=== PATIENT | female | born 1935 | race Hispanic/Latino ===

== ENCOUNTER 2018-12-28 22:50 | Observation (INO) | payer OTHER ==
[~2018-12-28] VITALS: Ht 157.5 cm; Wt 53.9 kg
[~2018-12-28 22:50] MED LIST: CLOP75TA32 PO; COLC0.6C3 PO; HYDR25TA PO; LOSA50TA64 PO
[2018-12-28 23:38] LABS: BASOPHILS % (AUTO) 0.5 % (0.0-5.0); EOSINOPHILS % (AUTO) 1.4 % (0.0-8.0); HEMATOCRIT 36.2 % (36-48); LYMPHOCYTES % (AUTO) 20.6 % (21.0-51.0); MEAN CORPUSCULAR HEMOGLOBIN 28.5 pg (27.0-33.0); MEAN CORPUSCULAR HGB CONC 34.2 g/dL (32.0-36.0); MEAN CORPUSCULAR VOLUME 83.4 fL (79-99); NEUTROPHILS % (AUTO) 58.5 % (40.0-77.0); NUCLEATED RED BLOOD CELLS 0.1 % (0.0-0.19); PLATELET COUNT (AUTO) 125 K/uL (130-400); RED BLOOD CELL COUNT(AUTO) 4.33 MIL/uL (4.00-5.50); RED CELL DISTRIBUTION WIDTH 12.8 % (11.0-15.5); WHITE BLOOD COUNT (AUTO) 9.9 K/uL (4.8-10.8)
[2018-12-28 23:46] LABS: CREATININE 1.4 mg/dL (0.5-1.5); POTASSIUM 3.7 mmol/L (3.5-5.1)
[2018-12-29] MEDS ORDERED: ASPIRIN 81MG TAB.CHEW ONE (00:32)
[2018-12-29] MEDS ORDERED: SODIUM CHLORIDE 0.9% 1000ML 1,000 ML IV ONE (00:33)
[2018-12-29] MEDS ORDERED: ONDANSETRON HCL 4 MG/2 ML VIAL IVP PRN (01:30)
[2018-12-29] MEDS ORDERED: ACETAMINOPHEN 325 MG TAB PO PRN (01:30)
[2018-12-29] MEDS ORDERED: ASPIRIN 81MG TAB.CHEW PO SCH (01:30)
[2018-12-29 04:13] LABS: BASOPHILS % (AUTO) 0.7 % (0.0-5.0); EOSINOPHILS % (AUTO) 1.7 % (0.0-8.0); HEMATOCRIT 36.1 % (36-48); LYMPHOCYTES % (AUTO) 25.3 % (21.0-51.0); MEAN CORPUSCULAR HEMOGLOBIN 28.1 pg (27.0-33.0); MEAN CORPUSCULAR HGB CONC 33.6 g/dL (32.0-36.0); MEAN CORPUSCULAR VOLUME 83.7 fL (79-99); MONOCYTES % (AUTO) 14.8 % (3.0-13.0); NEUTROPHILS % (AUTO) 57.5 % (40.0-77.0); PLATELET COUNT (AUTO) 129 K/uL (130-400); RED BLOOD CELL COUNT(AUTO) 4.31 MIL/uL (4.00-5.50); RED CELL DISTRIBUTION WIDTH 12.5 % (11.0-15.5); WHITE BLOOD COUNT (AUTO) 8.5 K/uL (4.8-10.8)
[2018-12-29 04:20] LABS: CREATININE 1.1 mg/dL (0.5-1.5); POTASSIUM 3.8 mmol/L (3.5-5.1)
[2018-12-29 04:26] LABS: ALBUMIN 3.2 g/dL (3.5-5.0); BILIRUBIN,TOTAL 0.4 mg/dL (0.2-1.0); MAGNESIUM 1.7 mg/dL (1.80-2.40); PHOSPHORUS 3.9 mg/dL (2.5-4.9); TOTAL PROTEIN, SERUM 6.9 g/dL (6.0-8.3)
[2018-12-29] MEDS ORDERED: IOHEXOL-350 75 ML VIAL IV ONE (07:19)
[2018-12-29] MEDS ORDERED: FAMOTIDINE/PF 20 MG/2 ML VIAL IV ONE (07:46)
[2018-12-29] MEDS: FAMOTIDINE/PF 20 MG/2 ML VIAL IV SCH ×2 (09:00→20:47)
[2018-12-29] MEDS: ASPIRIN 81MG TAB.CHEW PO SCH (09:00)
[2018-12-29 09:55] VITALS: BP 141/67
[2018-12-29 10:08] LABS: CHOLESTEROL 130 mg/dL (<200); HDL CHOLESTEROL 49 mg/dL (35-85); LDL DIRECT 74 mg/dL (0-99); TRIGLYCERIDES 47 mg/dL (30-200)
[2018-12-29] MEDS: SODIUM CHLORIDE 0.9% 1000ML 1,000 ML IV SCH ×3 (10:15→21:30)
[2018-12-29 10:27] LABS: APPEARANCE,URINE CLEAR (CLEAR); BILIRUBIN,URINE NEGATIVE (NEGATIVE); COLOR,URINE YELLOW (YELLOW); GLUCOSE, URINE (UA) NEGATIVE (NEGATIVE); KETONES,URINE NEGATIVE (NEGATIVE); LEUKOCYTE ESTERASE ,URINE NEGATIVE (NEGATIVE); NITRATE,URINE NEGATIVE (NEGATIVE); OCCULT BLOOD,URINE TRACE-INTACT (NEGATIVE); PROTEIN,URINE NEGATIVE (NEGATIVE); UROBILINOGEN,URINE 0.2 mg/dL (0.2-1.0)
--- NOTE | 2018-12-29 10:30 | NUR ---
ARRIVED TO THE ROOM ALERT AND AWAKE, ORIENTED TO PERSON, PLACE AND TIME. DENIES PAIN ON ARRIVAL. ASSISTED TO THE BATHROOM WITH MINIMAL ASSIST.ROOM ORIENTATION AND STAFF ORIENTATION WAS DONE. FAMILY TO BRING HOME MEDICATION. CALL LIGHT PLACED WITHIN REACH.
[2018-12-29 11:16] LABS: BACTERIA,URINE Rare /HPF (None Seen); RBC,URINE 0-1 /HPF (0-1); SQUAMOUS EPITHELIAL CELL,UR Rare /HPF (0-2); WBC,URINE 0-1 /HPF (0-1)
[2018-12-29 12:00] VITALS: BP 138/58
--- NOTE | 2018-12-29 13:28 | NUR ---
COGNITIVE-LINGUISTIC EVAL COMPLETED. Pt CURRENTLY AT BASELINE. Addendum: 12/29/18 at 1330 by LILY LAMBERT, SPT ST Amended: Links added.
--- NOTE | 2018-12-29 13:33 | NUR ---
DYSPHAGIA EVAL COMPLETED. -S/S OF ASPIRATION. RECOMMEND REGULAR TEXTURE, THIN LIQUIDS; PILLS WHOLE WITH LIQUIDS. Addendum: 12/29/18 at 1335 by LILY LAMBERT, [facility] ST Amended: Links added.
[2018-12-29] MEDS: CLOPIDOGREL BISULFATE 75 MG TAB PO SCH (14:37)
[2018-12-29 16:00] VITALS: BP 124/55
[2018-12-29 19:56] VITALS: BP 137/79
[2018-12-29] MEDS: ATORVASTATIN CALCIUM 40 MG TABLET PO SCH (20:46)
--- NOTE | 2018-12-29 23:00 | NUR ---
ASSESSED FAMILY MEMBER REPORTED PATIENT HAD AN EPISODE OF FORGETFULNESS AND WAS "HALLUCINATING". STATED PATIENT THOUGHT THE FLOOR WAS THE WALL. PATIENT WAS ASSESSED AND WAS ORIENTED TO PERSON, PLACE, TIME, AND SITUATION. WILL CONTINUE TO MONITOR.
[2018-12-29 23:35] VITALS: BP 122/79
[2018-12-30 03:36] VITALS: BP 133/63
[2018-12-30 05:03] LABS: HEMATOCRIT 32.5 % (36-48); MEAN CORPUSCULAR HEMOGLOBIN 28.6 pg (27.0-33.0); MEAN CORPUSCULAR HGB CONC 33.9 g/dL (32.0-36.0); MEAN CORPUSCULAR VOLUME 84.4 fL (79-99); PLATELET COUNT (AUTO) 115 K/uL (130-400); RED BLOOD CELL COUNT(AUTO) 3.85 MIL/uL (4.00-5.50); RED CELL DISTRIBUTION WIDTH 12.5 % (11.0-15.5); WHITE BLOOD COUNT (AUTO) 8.4 K/uL (4.8-10.8)
[2018-12-30 05:33] LABS: POTASSIUM 3.9 mmol/L (3.5-5.1)
[2018-12-30] MEDS: SODIUM CHLORIDE 0.9% 1000ML 1,000 ML IV SCH ×3 (07:30→21:03)
[2018-12-30 08:00] VITALS: BP 129/66
[2018-12-30] MEDS: ASPIRIN 81MG TAB.CHEW PO SCH (08:06)
[2018-12-30] MEDS: CLOPIDOGREL BISULFATE 75 MG TAB PO SCH (08:06)
[2018-12-30] MEDS: FAMOTIDINE/PF 20 MG/2 ML VIAL IV SCH ×2 (08:06→21:02)
[2018-12-30 12:00] VITALS: BP 139/69
--- NOTE | 2018-12-30 12:08 | NUR ---
BP 174/110 REPORTED BLOOD PRESSURE TO Monika SUERO, ORDER FOR NORVASC 10MG PO ONCE GIVEN. NO OTHER ORDERS AT THIS TIME. Addendum: 12/30/18 at 1239 by EVA GILBERT RN RN PREVIOUS NOTE ENTERED ON WRONG PATIENT
--- NOTE | 2018-12-30 12:09 | NUR ---
DCP CM met with pt and family discussed dc plans. Pt is semi-independent, assist with bathing and dressing prior to admission, lives at home with spouse, daughter and son. Pt has a rollator walker, isela, provider 3hrs/wk. Denies any other equipments/services. Pt feels safe to go back home, family able to assist with transportation and needs as necessary. DC plan to home once stable. CM to cont to follow up. Addendum: 12/30/18 at 1211 by ZHAO CAMACHO LVN CM Amended: Links added.
[2018-12-30] MEDS ORDERED: ASPI-1005 PO (12:39)
[2018-12-30 16:00] VITALS: BP 135/72
[2018-12-30 20:00] VITALS: BP 143/74
[2018-12-30] MEDS: ATORVASTATIN CALCIUM 40 MG TABLET PO SCH (21:03)
[2018-12-31] VITALS: BP 159/69
[2018-12-31 04:00] VITALS: BP 144/67
[2018-12-31] MEDS: SODIUM CHLORIDE 0.9% 1000ML 1,000 ML IV SCH (06:02)
[2018-12-31 07:30] VITALS: BP 167/67
[2018-12-31] MEDS: ASPIRIN 81MG TAB.CHEW PO SCH (08:20)
[2018-12-31] MEDS: CLOPIDOGREL BISULFATE 75 MG TAB PO SCH (08:21)
[2018-12-31] MEDS: FAMOTIDINE/PF 20 MG/2 ML VIAL IV SCH (08:21)
[2018-12-31] MEDS ORDERED: FLU VACC QS2019-20 36MOS UP/PF 60 MCG/0.5 ML ML IM SCH (09:00)
--- NOTE | 2018-12-31 11:05 | NUR ---
PT REQUESTS FLU SHOT. DENIES ALLERGY TO EGGS OR COMPONENT OF VACCINE. DENIES HX OF GUILLAIN-BARRE SYND. DENIES HX BONE MARROW TRANSPLANT. DENIES LATEX ALLERGY. FLU SHOT ORDERED.
[2018-12-31] MEDS ORDERED: FLU VACC QS2019-20 36MOS UP/PF 60 MCG/0.5 ML ML IM ONE (11:15)
[2018-12-31] MEDS ORDERED: PRAV10TA39 PO (13:47)
[2018-12-31] MEDS ORDERED: APIX2.5T PO (13:47)
--- NOTE | 2018-12-31 15:22 | NUR ---
DISCHARGE DISCHARGE INSTRUCTIONS GIVEN TO PATIENT, FAMILY PRESENT IN ROOM. BOTH PATIENT AND FAMILY VERBALIZED UNDERSTANDING. IV REMOVED NO SIGNS OF BLEEDING COVERED WITH BANDAID. PATIENT INSTRUCTED TO FOLLOW UP WITH [facility] FOR 2 WEEK MOBILE TELEMETRY MONITORING. PATIENT GIVEN PRESCRIPTION FOR ELEQUIS AND PRAVASTATIN.
== END 2018-12-31 15:45 | disposition home or self-care (01) ==
LOC: EDH 22:50 → EDHIP 12-29 00:10 → 3AH 12-29 09:50
PROVIDERS: ADMIT Internal Medicine Critical Care Medicine; ATTEND Internal Medicine Critical Care Medicine
DX: R20.0 Anesthesia of skin (principal); E11.9 Type 2 diabetes mellitus without complications; I11.9 Hypertensive heart disease without heart failure; Q21.1 Atrial septal defect; Z86.73 Personal history of transient ischemic attack (TIA), and cerebral infarction without residual deficits; Z79.01 Long term (current) use of anticoagulants; Z79.02 Long term (current) use of antithrombotics/antiplatelets; Z79.82 Long term (current) use of aspirin; Z79.899 Other long term (current) drug therapy; Z90.5 Acquired absence of kidney; Z91.19 Patient's noncompliance with other medical treatment and regimen; Z23 Encounter for immunization
CPT/HCPCS: 36415 ×3; 70450; 70496; 70498; 70551; 80048 ×2; 80053; 80061 ×2; 81001; 82948 ×10; 83735; 84100; 85025 ×2; 85027; 92522; 92610; 93005; 93306; 96374; 96376 ×2; 97116; 97161; 99291; G0008; G0378 ×63; G8978; G8979; G8980; G8981; G8982; G8983; J3490 ×5; J7030 ×5; Q9967

== ENCOUNTER 2021-01-15 19:29 | Emergency (ER) | payer OTHER ==
[~2021-01-15] VITALS: Ht 144.8 cm; Wt 49.9 kg
[~2021-01-15 19:29] MED LIST changes: +APIX2.5T PO; +ASPI-1005 PO; -CLOP75TA32 PO; +PRAV10TA39 PO
[2021-01-15] MEDS ORDERED: FAMO-136 PO (22:21)
[2021-01-15 22:29] VITALS: BP 151/79
[2021-01-15] MEDS ORDERED: MAG/ALUM/SIMETH 30 ML UDCUP PO ONE (22:30)
== END 2021-01-15 22:40 | disposition home or self-care (01) ==
LOC: EDH 19:29
DX: S10.11XA Abrasion of throat, initial encounter (principal); K29.70 Gastritis, unspecified, without bleeding; I11.9 Hypertensive heart disease without heart failure; Z86.73 Personal history of transient ischemic attack (TIA), and cerebral infarction without residual deficits; Z79.899 Other long term (current) drug therapy; X58.XXXA Exposure to other specified factors, initial encounter; Y93.89 Activity, other specified; Y92.89 Other specified places as the place of occurrence of the external cause; Y99.8 Other external cause status
CPT/HCPCS: 70490; 71045

== ENCOUNTER 2022-04-03 09:12 | Emergency (ER) | payer OTHER ==
[~2022-04-03] VITALS: Ht 149.9 cm; Wt 52.6 kg
[~2022-04-03 09:12] MED LIST changes: +ACET-66 PO; +DICL20GE TP; +FAMO-136 PO
[2022-04-03 09:42] LABS: BASOPHILS % (AUTO) 0.5 % (0.0-5.0); EOSINOPHILS % (AUTO) 0.8 % (0.0-8.0); HEMATOCRIT 35.6 % (36-48); LYMPHOCYTES % (AUTO) 14.1 % (21.0-51.0); MEAN CORPUSCULAR HEMOGLOBIN 27.8 pg (27.0-33.0); MEAN CORPUSCULAR HGB CONC 33.1 g/dL (32.0-36.0); MEAN CORPUSCULAR VOLUME 83.8 fL (79-99); MONOCYTES % (AUTO) 15.7 % (3.0-13.0); NEUTROPHILS % (AUTO) 68.1 % (40.0-77.0); PLATELET COUNT (AUTO) 143 K/uL (130-400); RED BLOOD CELL COUNT(AUTO) 4.25 MIL/uL (4.00-5.50); RED CELL DISTRIBUTION WIDTH 11.9 % (11.0-15.5); WHITE BLOOD COUNT (AUTO) 9.8 K/uL (4.8-10.8)
[2022-04-03 09:51] LABS: CREATININE 1.3 mg/dL (0.5-1.5); POTASSIUM 3.8 mmol/L (3.5-5.1)
[2022-04-03 09:56] LABS: ALBUMIN 3.3 g/dL (3.5-5.0); TOTAL PROTEIN, SERUM 7.3 g/dL (6.0-8.3)
[2022-04-03 11:06] VITALS: BP 152/69
== END 2022-04-03 11:17 | disposition home or self-care (01) ==
LOC: EDH 09:12
DX: S00.83XA Contusion of other part of head, initial encounter (principal); S40.022A Contusion of left upper arm, initial encounter; I10 Essential (primary) hypertension; I50.9 Heart failure, unspecified; W18.39XA Other fall on same level, initial encounter; Y93.01 Activity, walking, marching and hiking; Y92.89 Other specified places as the place of occurrence of the external cause; Y99.8 Other external cause status
CPT/HCPCS: 36415; 70450; 70486; 72125; 80053; 85025

== ENCOUNTER 2024-02-15 13:49 | Emergency (ER) | payer OTHER, MEDICARE ==
[~2024-02-15] VITALS: Ht 142.2 cm; Wt 52.2 kg
[2024-02-15 14:25] VITALS: TEMP 98.9
[2024-02-15 15:00] VITALS: BP 122/65; PULSE 84; RESP 18; O2SAT 100
--- NOTE | 2024-02-15 18:00 | HMCIMG ---
CT NECK SOFT TISS W/O CONTRAST HISTORY: Foreign body COMPARISON: 04/03/2022 TECHNIQUE: Multiple sequential axial images of the soft tissue neck were obtained. Patient was not given contrast through intravenous route. FINDINGS: No evidence of radiopaque foreign body is seen. Visualized portion of brain parenchyma within the posterior fossa is within normal limits. Parapharyngeal fat planes are preserved bilaterally. Parotid glands and submandibular glands are grossly within normal limits. There are normal size cervical lymph nodes. The airway is patent. Visualized portion of the lung apices are unremarkable. There are degenerative changes with cervical spine spondylosis. Central canal narrowing is seen. IMPRESSION: 1. No acute findings. CT was performed with one or more following dose reduction techniques: automated exposure control, adjustment of the mA and kv according to patient's size, or use of a iterative reconstruction technique.
--- NOTE | 2024-02-15 18:17 | ERN ---
ED Note History of Present Illness Stated Complaint: FEELS SOMETHING IN THROAT Chief Complaint: Other Problems Time Seen by MD: 16:46 Time Seen by Midlevel: 16:46 Dictation: The patient is an 88-year-old female with a history of hypertension, nephrecto my, thyroidectomy who presents to the emergency department with complaints of sensation of food stuck in throat onset 130 after eating beef tacos. Patient denies any nausea or vomiting, cough, chest pain or shortness of breath. Allergies: Coded Allergies: No Known Drug Allergies (Unverified Allergy, Unknown, 12/28/15) Home Meds Active Scripts Acetaminophen (Tylenol) 500 Mg Tab, 500 MG PO Q4PRN PRN for PAIN LEVEL 4 TO 6, #30 TAB Prov:EDILBERTO INGRAMP 05/23/21 Diclofenac Sodium (Voltaren Arthritis Pain) 20 Gm Gel..gram., 20 GM TP TID, #1 TUBE Prov:EDILBERTO INGRAMP 05/23/21 Famotidine (Pepcid) 20 Mg Tablet, 20 MG PO BID, #60 TAB Prov:KIRAN GRIMM MD 01/15/21 Pravastatin Sodium (Pravastatin Sodium) 10 Mg Tablet, 10 MG PO HS for 30 Days, #30 TAB 1 Refill Prov:JAYDEN BERG MD 12/31/18 Apixaban (Eliquis) 2.5 Mg Tablet, 2.5 MG PO BID for 30 Days, #60 TAB 1 Refill Prov:JAYDEN BERG MD 12/31/18 Aspirin (ASPIRIN 81MG CHEW TAB) 81 Mg Tab.chew, 81 MG PO DAILY for 30 Days, #30 TAB.CHEW Prov:ARTEM NO [facility] 12/30/18 Colchicine (Colchicine) 0.6 Mg Capsule, 0.6 MG PO AD for PAIN LEVEL 6 TO 10, #3 CAP Prov:CHEL SANDERS MD 12/31/15 Reported Medications Losartan Potassium (Losartan Potassium) 50 Mg Tablet, 50 MG PO DAILY, TAB 12/28/15 Hydrochlorothiazide (Hydrochlorothiazide) 25 Mg Tablet, 25 MG PO DAILY, TAB 12/28/15 Past Medical History Past Medical History: CVA, Hypertension Additional Past Medical Hx: 1 KIDNEY Surgical History: Other Surgical History Other: NEPHRECTOMY, THYROIDECTOMY Family History: Negative Social History: Negative RN Note Reviewed/Agreed w/PFSH: Yes Review of System Dictation Constitutional: Negative for fever,chills, and weight loss Eyes: Negative for injury, pain,redness, and discharge ENT: Negative for injury,pain or swelling positive for throat pain Cardiovascular: Negative for chest pain, palpitations, and edema Respiratory: Negative for shortness of breath, cough, and wheezing, Abdomen/GI: Negative for abdominal pain, nausea, vomiting, diarrhea, and constipation Back: Negative for injury and pain : Negative for injury, bleeding and discharge MS/Extremity: Negative for injury and deformity Skin: Negative for rash, and discoloration Neuro: Negative for headache, weakness, numbness, tingling, and seizure Psych: Negative for suicide ideation, homicidal ideation, and hallucinations l Initial Vital Sign VS Vital Signs Date Time Temp Pulse Resp B/P (MAP) Pulse Ox O2 Delivery O2 Flow Rate FiO2 02/15/24 14:25 99.0 78 16 186/79 99 Room Air 0 02/15/24 15:00 21 Physical Exam Dictation Vital Signs reviewed General Appearance: Alert, oriented x 3, no acute distress, well developed, nourished. Head and Face: non-traumatic. Eyes: PERRL, pink conjunctivas, eyelid no trauma, anterior chamber with arcus senilis. Ears: Pinnas intact and no signs of trauma or erythema ear canals clear and no discharge TM no erythema Nose: No discharge, no bleeding. Oropharynx: Mouth normal, tongue pink. pharynx clear,no erythema, tonsils no exudates, no abscesses noted, mucous membrane moist Neck: Supple, non-tender, no thyromegaly, no masses, no JVD, no bruits Breast:Deferred Chest:No tenderness, no crepitus, no paradoxical movement, no retractions Lungs:Clear, well-ventilated, symmetric, no rales, no wheezing, no rhonchi, no stridor, good breath sounds bilaterally Heart: Regular rate, regular rhythm, no murmur, no gallops Vascular: no peripheral edema, Abdomen: Soft, positive bowel sounds, nondistended, no guarding, nontender, no rebound, no masses no hepatomegaly, no splenomegaly, no Arvizu's sign, no hernias. Rectal: Deferred Genital: Deferred Neurological: Normal speech, motor function intact, sensory function intact Musculoskeletal: Neck nontender, full range of motion, back nontender, full range of motion, Extremities: nontender, full range of motion Skin: Color pink, dry, no turgor, no rash, no lacerations, no abrasions, no contusions. Lymphatic: Deferred Results (Laboratory/Radiology) Laboratory/Radiology REASON: r/o foreing body throat ORDERING PHYSICIAN: NO JUAN OCC THERAPY ASST PROCEDURE: NKSOFTI WO - CT NECK SOFT TISS W/O CONTRAST CT NECK SOFT TISS W/O CONTRAST HISTORY: Foreign body COMPARISON: 04/03/2022 TECHNIQUE: Multiple sequential axial images of the soft tissue neck were obtained. Patient was not given contrast through intravenous route. FINDINGS: No evidence of radiopaque foreign body is seen. Visualized portion of brain parenchyma within the posterior fossa is within normal limits. Parapharyngeal fat planes are preserved bilaterally. Parotid glands and submandibular glands are grossly within normal limits. There are normal size cervical lymph nodes. The airway is patent. Visualized portion of the lung apices are unremarkable. There are degenerative changes with cervical spine spondylosis. Central canal narrowing is seen. IMPRESSION: 1. No acute findings. CT was performed with one or more following dose reduction techniques: automated exposure control, adjustment of the mA and kv according to patient's size, or use of a iterative reconstruction technique. Labs Reviewed?: Yes ED Course ED Course Orders Procedure Category Date Status Time Ct Neck Soft Tiss W/O CT 02/15/24 Resulted Contrast 17:13 Vital Signs Date Time Temp Pulse Resp B/P (MAP) Pulse Ox O2 Delivery O2 Flow Rate FiO2 02/15/24 15:00 84 18 122/65 100 Room Air* 0 21 02/15/24 14:25 99.0 78 16 186/79 99 Room Air 0 Medical Decision Making MDM The patient is an 88-year-old female with a history of hypertension, neph rectomy, thyroidectomy who presents to the emergency department with complaints of sensation of food stuck in throat onset 130 after eating beef tacos. Patient denies any nausea or vomiting, cough, chest pain or shortness of breath. CT showed no foreign body in throat. Patient continues in no distress, not coughing, no shortness of breath. Will be discharged to follow up with PCP. Differential diagnosis: Pharyngitis, aspiration, foreign body in throat Need for hospitalization: Patient does not meet criteria for hospitalization. There are no social concerns with this patient. DX & DISP Disposition: Discharge Departure Impression: Primary Impression: Throat irritation Condition: Stable Additional Instructions: Please follow up with primary doctor in 1-2 days. If symptoms continue you might need to referral to a GI specialist. Please return to ER if symptoms worsen FOLLOW-UP WITH PRIMARY CARE PROVIDER IN 1 TO 2 DAYS. TAKE MEDICATIONS DIRECTED HERE IN THE EMERGENCY ROOM. OKAY TO CONTINUE HOME MEDICATIONS UNLESS OTHERWISE DISCUSSED DURING YOUR VISIT IN THE EMERGENCY ROOM TODAY. RETURN TO YOUR NEAREST EMERGENCY ROOM IF SYMPTOMS WORSEN OR IF THERE IS NO IMPROVEMENT. CALL 911 IF YOU NEED IMMEDIATE ASSISTANCE. TAKE TYLENOL OR MOTRIN OVER-THE-C OUNTER NEEDED AND IF NO CONTRAINDICATIONS ARE PRESENT. INCREASE ORAL HYDRATION. A WOUND CULTURE OR URINE CULTURE WAS ORDERED HERE IN THE EMERGENCY ROOM DEPARTMENT PLEASE FOLLOW-UP WITH PRIMARY CARE PROVIDER AND ADVISE THEM TO GET REPEAT PORTS FROM OUR FACILITY. IF YOU HAD ANY CHADD WRAP/SPLINTS THAT WERE APPLIED HERE, PLEASE DO NOT REMOVE THEM UNTIL YOU SEE YOUR PRIMARY CARE OR SPECIALTY. Referrals: MYCHAL BAKER MD (PCP) Time of Disposition: 18:15 I have reviewed the case, and I agree with, Diagnosis and Plan NO JUAN Feb 15, 2024 18:17 GAURI MARTÍNEZ DO Feb 17, 2024 10:43
== END 2024-02-15 19:11 | disposition home or self-care (01) ==
LOC: EDH 13:49
DX: R07.0 Pain in throat (principal); I10 Essential (primary) hypertension; Z79.01 Long term (current) use of anticoagulants; Z79.82 Long term (current) use of aspirin; Z79.899 Other long term (current) drug therapy; Z86.73 Personal history of transient ischemic attack (TIA), and cerebral infarction without residual deficits; Z90.5 Acquired absence of kidney
CPT/HCPCS: 70490; 99284

== ENCOUNTER 2024-06-10 08:32 | Emergency (ER) | payer OTHER, MEDICARE ==
[~2024-06-10] VITALS: Ht 147.3 cm; Wt 47.6 kg
[2024-06-10 08:33] VITALS: BP 191/81; PULSE 75; RESP 16; TEMP 98
--- NOTE | 2024-06-10 08:40 | NUR ---
REFER TO TRAUMA FLOW SHEET
--- NOTE | 2024-06-10 09:07 | HMCIMG ---
FOREARM 2VWS RT HISTORY: Status post fall COMPARISON: None TECHNIQUE: 2 images of right forearm were obtained. FINDINGS: Orthopedic fixation plates and screws are seen traversing the distal radius. Bony osteopenia is seen. There is no acute displaced fracture or dislocation. Degenerative changes are seen. IMPRESSION: 1. Findings as described above.
--- NOTE | 2024-06-10 09:14 | HMCIMG ---
ANKLE 2VWS RT HISTORY: Status post fall COMPARISON: None TECHNIQUE: 2 images of right ankle were obtained. FINDINGS: There is a calcaneal spur. Bony osteopenia is seen. There is no acute displaced fracture or dislocation. Degenerative changes are seen. IMPRESSION: 1. Findings as described above.
--- NOTE | 2024-06-10 09:14 | HMCIMG ---
CT HEAD/BRAIN W/O CONTRAST HISTORY: Trauma COMPARISON: None TECHNIQUE: Multiple sequential axial images of the head were obtained from the base of the skull through vertex. Patient was not given contrast through intravenous route. FINDINGS: The ventricles and extraventricular CSF spaces are dilated consistent with cerebral atrophy. Nonspecific white matter changes seen. Old left occipital lobe infarct is seen. There is no midline shift, mass effect or herniation. No acute intracranial bleed is seen. Visualized portion of the paranasal sinuses are grossly within normal limits. IMPRESSION: 1. No acute intracranial bleed is seen. 2. Atrophy with white matter changes. CT was performed with one or more following dose reduction techniques: automated exposure control, adjustment of the mA and kv according to patient's size, or use of a iterative reconstruction technique.
--- NOTE | 2024-06-10 09:15 | HMCIMG ---
CHEST 1VW HISTORY: Status post fall COMPARISON: 01/15/2021 FINDINGS: A frontal projection of the chest was obtained. Prominent interstitial markings are seen with possible superimposed infiltrates. The heart is borderline enlarged. Degenerative changes are seen. No evidence of aortic calcification is seen. IMPRESSION: 1. Prominent interstitial markings are seen with possible superimposed infiltrates.
--- NOTE | 2024-06-10 09:46 | ERN ---
General Chief Complaint: Mechanical Fall Stated Complaint: FALL Time Seen by MD: 08:34 Source: patient History of Present Illness Initial Comments Patient is a an 88-year-old female coming in to be evaluated after she had a slip and a fall. Per patient she was walking and uses walker stepped on what floor which caused him to fall back. She states he has a mild headache right wrist and right ankle pain. Allergies: Coded Allergies: No Known Drug Allergies (Unverified Allergy, Unknown, 12/28/15) Home Meds Active Scripts Acetaminophen (Tylenol) 500 Mg Tab, 500 MG PO Q4PRN PRN for PAIN LEVEL 4 TO 6, #30 TAB Prov[facility] 05/23/21 Diclofenac Sodium (Voltaren Arthritis Pain) 20 Gm Gel..gram., 20 GM TP TID, #1 TUBE Prov:[facility] 05/23/21 Famotidine (Pepcid) 20 Mg Tablet, 20 MG PO BID, #60 TAB Prov:KIRAN GRIMM MD 01/15/21 Pravastatin Sodium (Pravastatin Sodium) 10 Mg Tablet, 10 MG PO HS for 30 Days, #30 TAB 1 Refill Prov:JAYDEN BERG MD 12/31/18 Apixaban (Eliquis) 2.5 Mg Tablet, 2.5 MG PO BID for 30 Days, #60 TAB 1 Refill Prov:JAYDEN BERG MD 12/31/18 Aspirin (ASPIRIN 81MG CHEW TAB) 81 Mg Tab.chew, 81 MG PO DAILY for 30 Days, #30 TAB.CHEW Prov:ARTEM NO [facility] 12/30/18 Colchicine (Colchicine) 0.6 Mg Capsule, 0.6 MG PO AD for PAIN LEVEL 6 TO 10, #3 CAP Prov:CHEL SANDERS MD 12/31/15 Reported Medications Losartan Potassium (Losartan Potassium) 50 Mg Tablet, 50 MG PO DAILY, TAB 12/28/15 Hydrochlorothiazide (Hydrochlorothiazide) 25 Mg Tablet, 25 MG PO DAILY, TAB 12/28/15 Past Medical History Past Medical History: CVA, Hypertension Medical History Other: 1 KIDNEY Past Surgical History: Other Surgical History Other: NEPHRECTOMY, THYROIDECTOMY Family History Family History: Negative Social History Social History: Negative ROS Dictation CONSTITUTIONAL: No chills, no fever, no weakness, no diaphoresis, no malaise. HEAD/FACE: No signs of trauma. EENT: No eye pain, no blurred vision, no tearing, no double vision, no ear pain , no ear discharge, no nose pain, no nasal congestion, no throat pain, no throat swelling, no mouth pain. RESPIRATORY: No cough, no orthopnea, no SOB, no stridor, no wheezing. CARDIOVASCULAR: No chest pain, no edema, no palpitations, no syncope. GASTROINTESTINAL/ABDOMINAL: No abdominal pain, no constipation, no diarrhea, no nausea, no vomiting. GENITOURINARY: No abnormal discharge, no dysuria, no frequent urination, no hematuria. No complaints of pain in the genitals. MUSCULOSKELETAL: No back pain, no gout, no joint pain, no joint swelling, no muscle pain, no muscle stiffness, no neck pain. INTEGUMENTARY: No change in color, no change in hair/nails, no dryness, no lesion, no lumps, no rash. NEUROLOGICAL/PSYCH: No anxiety, not depressed, no emotional problem, no headache, no numbness, no pre-existing deficit, no history of seizures, no tremors, no weakness. HEMATOLOGIC/LYMPHATIC: Not anemic, no history of blood clots, no apparent bleeding, no bruising, glands not swollen. All Systems Negative, Except as Noted. Physical Exam Physical Exam Dictation VITAL SIGNS: Reviewed. GENERAL APPEARANCE: Alert, oriented x3, no acute distress, obese. HEAD AND FACE: Non-traumatic. Right parietal hematoma EYES: PERRL, pink conjunctivas, eyelid no trauma, anterior chamber clear. EARS: Pinnas intact and no signs of trauma or erythema. Ear canals clear and no discharge. TMs no erythema. NOSE: No discharge, no bleeding. OROPHARYNX: Mouth normal, teeth no caries, tongue pink. Pharynx clear, no erythema. Tonsils no exudates, no abscesses noted. Mucous membrane moist. NECK: Supple, non-tender, no thyromegaly, no masses, no JVD, no bruits. BREAST: Deferred. CHEST: No tenderness, no crepitus, no paradoxical movement, no retractions. LUNGS: Clear, well-ventilated, symmetric, no rales, no wheezing, no rhonchi, no stridor, good breath sounds bilaterally. HEART: Regular rate, regular rhythm, no murmur, no gallops. VASCULAR: No peripheral edema. ABDOMEN: Soft, positive bowel sounds, nondistended, no guarding, nontender, no rebound, no masses no hepatomegaly, no splenomegaly, no Arvizu's sign, no h ernias. RECTAL: Deferred. GENITAL: Deferred. NEUROLOGICAL: Normal speech, gross motor function intact, gross sensory functi on intact. MUSCULOSKELETAL: Neck nontender, full range of motion, back nontender, full range of motion. EXTREMITIES: Nontender, full range of motion. SKIN: Color pink, dry, no turgor, no rash, no lacerations, no abrasions, no contusions. LYMPHATICS: Deferred. Results Laboratory and Microbiology Labs Reviewed?: Yes EKG/XRAY/US/CT/MRI X-RAY Comment [place] [phone] IMAGING REPORT Signed PATIENT: SAMANTA FISCHER V MR#: [id number] : 1935 SEX: F AGE: 88 LOCATION: ED ORDER 3 STATUS: REG [facility] REPORT#: [id number] SERVICE 2 REASON: fall ORDERING PHYSICIAN: ZELDA GILL MD PROCEDURE: FORARMR - FOREARM 2VWS RT FOREARM 2VWS RT HISTORY: Status post fall COMPARISON: None TECHNIQUE: 2 images of right forearm were obtained. FINDINGS: Orthopedic fixation plates and screws are seen traversing the distal radius. Bony osteopenia is seen. There is no acute displaced fracture or dislocation. Degenerative changes are seen. IMPRESSION: 1. Findings as described above. DICTATED BY: SAHRA AVENDAÑO MD DATE: 06/10/24903 ELECTRONICALLY SIGNED BY: SAHRA AVENDAÑO MD DATE: 06/10/24906 [place] [phone] IMAGING REPORT Signed PATIENT: SAMANTA FISCHER V MR#: [id number] : 1935 SEX: F AGE: 88 LOCATION: ED ORDER 3 STATUS: REG ER REPORT#: [id number] SERVICE REASON: fall ORDERING PHYSICIAN: ZELDA GILL MD PROCEDURE: [id number] - ANKLE 2VWS RT ANKLE 2VWS RT HISTORY: Status post fall COMPARISON: None TECHNIQUE: 2 images of right ankle were obtained. FINDINGS: There is a calcaneal spur. Bony osteopenia is seen. There is no acute displaced fracture or dislocation. Degenerative changes are seen. IMPRESSION: 1. Findings as described above. DICTATED BY: SAHRA AVENDAÑO MD DATE: 06/10/24904 ELECTRONICALLY SIGNED BY: SAHRA AVENDAÑO MD DATE: 06/10/24913 [place] [address] [place] [phone] IMAGING REPORT Signed PATIENT: SAMANTA FISCHER V MR#: [id number] : 1935 SEX: F AGE: 88 LOCATION: ED ORDER 6 STATUS: REG ER [facility] REPORT#: [id number] SERVICE 6 REASON: fall ORDERING PHYSICIAN: ZELDA GILL MD PROCEDURE: CXR1VW - CHEST 1VW CHEST 1VW HISTORY: Status post fall COMPARISON: 01/15/2021 FINDINGS: A frontal projection of the chest was obtained. Prominent interstitial markings are seen with possible superimposed infiltrates. The heart is borderline enlarged. Degenerative changes are seen. No evidence of aortic calcification is seen. IMPRESSION: 1. Prominent interstitial markings are seen with possible superimposed infiltrates. DICTATED BY: SAHRA AVENDAÑO MD DATE: 06/10/24909 ELECTRONICALLY SIGNED BY: SAHRA AVENDAÑO MD DATE: 06/10/24914 CT Scan Comment [place] [address] [address] IMAGING REPORT Signed PATIENT: SAMANTA FISCHER V MR#: [id number] : 1935 SEX: F AGE: 88 LOCATION: ED ORDER 6 STATUS: REG ER REPORT#: [id number] SERVICE REASON: fall ORDERING PHYSICIAN: ZELDA GILL MD PROCEDURE: HEAD WO - CT HEAD/BRAIN W/O CONTRAST CT HEAD/BRAIN W/O CONTRAST HISTORY: Trauma COMPARISON: None TECHNIQUE: Multiple sequential axial images of the head were obtained from the base of the skull through vertex. Patient was not given contrast through intravenous route. FINDINGS: The ventricles and extraventricular CSF spaces are dilated consistent with cerebral atrophy. Nonspecific white matter changes seen. Old left occipital lobe infarct is seen. There is no midline shift, mass effect or herniation. No acute intracranial bleed is seen. Visualized portion of the paranasal sinuses are grossly within normal limits. IMPRESSION: 1. No acute intracranial bleed is seen. 2. Atrophy with white matter changes. CT was performed with one or more following dose reduction techniques: automated exposure control, adjustment of the mA and kv according to patient's size, or use of a iterative reconstruction technique. DICTATED BY: SAHRA AVENDAÑO MD DATE: 06/10/24906 ELECTRONICALLY SIGNED BY: SAHRA AVENDAÑO MD DATE: 06/10/24913 [facility] MDM: Differential diagnosis: Fall, slip, Patient is a an 88-year-old female coming in to be evaluated she has a fall peng ier today. Patient states that evaluating slipped on wet floor which caused her to falling backwards no loss of consciousness mild headache. Imaging studies negative for acute findings. Did advise her and her family member continue monitoring throughout the day if any symptoms should arise the might be alarming to seek immediate help with PCP or nearest ER. Patient will be discharged in stable condition patient tolerating oral intake. ED Course Orders Procedure Category Date Status Time Ct Head/Brain W/O CT 06/10/24 Resulted Contrast 08:37 Chest 1vw RAD 06/10/24 Resulted 08:37 Ankle 2vws Rt RAD 06/10/24 Resulted 08:43 Forearm 2vws Rt RAD 06/10/24 Resulted 08:43 Vital Signs Date Time Temp Pulse Resp B/P (MAP) Pulse Ox O2 Delivery O2 Flow Rate FiO2 06/10/24 08:33 98.1 75 16 191/81 98 Room Air DX & DISP Disposition: Discharge Departure Impression: Primary Impression: Fall from standing Condition: Stable Additional Instructions: FOLLOW-UP WITH PRIMARY CARE PROVIDER IN 1 TO 2 DAYS. TAKE MEDICATIONS DIRECTED HERE IN THE EMERGENCY ROOM. OKAY TO CONTINUE HOME MEDICATIONS UNLESS OTHERWISE DISCUSSED DURING YOUR VISIT IN THE EMERGENCY ROOM TODAY. RETURN TO YOUR NEAREST EMERGENCY ROOM IF SYMPTOMS WORSEN OR IF THERE IS NO IMPROVEMENT. CALL 911 IF YOU NEED IMMEDIATE ASSISTANCE. TAKE TYLENOL [id number] NEEDED AND IF NO CONTRAINDICATIONS ARE PRESENT. INCREASE ORAL HYDRATION. A WOUND CULTURE OR URINE CULTURE WAS ORDERED HERE IN THE EMERGENCY ROOM DEPARTMENT PLEASE FOLLOW-UP WITH PRIMARY CARE PROVIDER AND ADVISE THEM TO GET REPEAT PORTS FROM OUR FACILITY. IF YOU HAD ANY CHADD WRAP/SPLINTS THAT WERE APPLIED HERE, PLEASE DO NOT REMOVE THEM UNTIL YOU SEE YOUR PRIMARY CARE OR SPECIALTY. Referrals: Referrals: MYCHAL BAKER MD (PCP) Time of Disposition: 10:32 ZELDA GILL MD Jun 10, 2024 09:46
[2024-06-10] MEDS ORDERED: acetaMINOPHEN 500 MG TABLET PO ONE (11:00)
== END 2024-06-10 10:43 | disposition home or self-care (01) ==
LOC: EDH 08:32
DX: S00.03XA Contusion of scalp, initial encounter (principal); M25.531 Pain in right wrist; M25.571 Pain in right ankle and joints of right foot; I10 Essential (primary) hypertension; Z79.01 Long term (current) use of anticoagulants; Z79.82 Long term (current) use of aspirin; Z79.899 Other long term (current) drug therapy; Z86.73 Personal history of transient ischemic attack (TIA), and cerebral infarction without residual deficits; Z90.5 Acquired absence of kidney; W18.39XA Other fall on same level, initial encounter; Y93.01 Activity, walking, marching and hiking; Y92.89 Other specified places as the place of occurrence of the external cause; Y99.8 Other external cause status
CPT/HCPCS: 70450; 71045; 73090; 73600; 99284

== ENCOUNTER → 2024-12-07 | Outpatient (CLI) | payer OTHER, MEDICARE ==
[~2024-12-07] MED LIST changes: +PRAV10TA37 PO; -PRAV10TA39 PO
--- NOTE | 2024-12-08 15:51 | HMCIMG ---
CLINICAL INDICATION: Age-related osteoporosis without current pathological fracture COMPARISON: None available TECHNIQUE: Bone densitometry is performed of the lumbar spine and left hip. FINDINGS: Total BMD of lumbar spine is 0.610 g/cm2 with a T-score of -4.0 and Z-score is . Total BMD of left hip is 0.4-3 g/cm2 with a T-score of -4.0 and Z-score is . FRAX SCORE: The 10 year fracture risk for a major osteoporotic fracture and hip fracture not reported due to T score at or below -2.5 IMPRESSION: 1. 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 I would recommend follow-up in 13 months. World Health Organization criteria for BMD interpretation classify patients as Normal (T-score at or above -1.0), Osteopenic (T-score between -1.0 and -2.5), or Osteoporotic (T-score at or below -2.5). FRAX SCORE: A. All treatment decisions require clinical judgment and consideration of individual patient factors, including patient preferences, comorbidities, previous drug use, risk factors not captured in the FRAX model (e.g., frailty, falls, vitamin D deficiency, increased bone turnover, interval significant decline in bone density) and possible [id number]-estimation of fracture risk by FRAX. B. In addition, the NOF Guide recommends that FDA-approved medical therapies be considered in postmenopausal women and men age greater than or equal to 50 years with a: i. Hip or vertebral (clinical or morphometric) fracture. ii. T-score of less than or equal to -2.5 at the spine or hip. iii. Ten-year fracture probability by FRAX of greater than or equal to 3% for hip fracture of greater than or equal to 20% for major osteoporotic fracture.
== END | disposition home or self-care (01) ==
LOC: RAH 08:59
PROVIDERS: ATTEND Family Medicine
DX: M81.0 Age-related osteoporosis without current pathological fracture (principal); M85.89 Other specified disorders of bone density and structure, multiple sites
CPT/HCPCS: 77080